=== PATIENT | male | born 1995 | race Caucasian/White ===

== ENCOUNTER 2018-08-09 10:18 | Emergency (ER) | payer BC ==
[~2018-08-09] VITALS: Ht 185.4 cm; Wt 78.9 kg
[2018-08-09] MEDS ORDERED: DOXY50TA13 PO (10:26)
--- NOTE | 2018-08-09 10:30 | NUR ---
PT IS IN ROOM #2A. DR UGALDE EVALUATED THE PT.
--- NOTE | 2018-08-09 10:43 | NUR ---
PT WAS D/C TO HOME. D/C INSTRUCTIONS GIVEN TO THE PT.
[2018-08-09 10:44] VITALS: BP 129/77
== END 2018-08-09 10:45 | disposition home or self-care (01) ==
LOC: ER 10:18
DX: S63.287A Dislocation of proximal interphalangeal joint of left little finger, initial encounter (principal); W21.01XA Struck by football, initial encounter; Y93.89 Activity, other specified; Y92.89 Other specified places as the place of occurrence of the external cause; Y99.8 Other external cause status
CPT/HCPCS: 73140; A4663